=== PATIENT | male | born 1955 | race Caucasian/White ===

== ENCOUNTER 2023-05-04 05:17 | Observation (INO) ==
--- NOTE | 2023-03-22 11:47 | PAT Medication Instructions ---
Medication Instructions Date of Service March 22, 2023 Home Medications aspirin 81 mg tablet,delayed release 81 mg PO QAM coQ10 (ubiquinol) 200 mg capsule 200 mg PO QPM lisinopril 20 mg tablet 20 mg PO QPM metformin 500 mg tablet 500 mg PO BID metoprolol succinate 25 mg tablet,extended release 24 hr 25 mg PO QPM rosuvastatin 10 mg tablet 10 mg PO HS STOP taking 2 weeks before surgery (or as soon as possible if surgery is within 2 weeks) coQ10 (ubiquinol) 200 mg capsule 200 mg PO QPM DO NOT take the morning of surgery metformin 500 mg tablet 500 mg PO BID Take morning of surgery With a small sip of water, OTHERWISE NOTHING TO EAT OR DRINK AFTER MIDNIGHT: aspirin 81 mg tablet,delayed release 81 mg PO QAM (unless directed otherwise by surgeon) Take evening before surgery lisinopril 20 mg tablet 20 mg PO QPM metformin 500 mg tablet 500 mg PO BID metoprolol succinate 25 mg tablet,extended release 24 hr 25 mg PO QPM rosuvastatin 10 mg tablet 10 mg PO HS Other Notes If you have any questions please call us at [phone] or [phone] or [phone] or [phone]
--- NOTE | 2023-03-25 10:25 | Anesthesiology Consultation ---
Date of Service March 25, 2023 Assessment & Plan (1) Encounter for pre-operative examination: - Check BSG AM DOS - COVID screening: Per assessment on 03/25: No known COVID-19 positive contacts or current COVID-19 related symptoms. Travel screen negative. Patient vaccinated. At surgeon discretion if preop Covid testing being done. - Outpatient joint assessment: Pt currently scheduled for inpatient pathway. If surgeon requests review for outpatient joint pathway, patient is not recommended candidate (with current available information) for outpatient joint program from anesthesia standpoint. Chart Review Chart Review: Acceptable Risk for Surgery and Patient seen in Pre Admission Testing Teaching & Discussion Pre-Anesthesia Teaching/Discussion Notes: Instructed NPO after midnight before surgery,except medications with 15 cc of water. Medication instructions provided according to the PAT guidelines. History Surgery Operation Date: 05/04/23 10:05 Proposed Procedures p Left Total Knee Arthroplasty - Jet Shannon MD Height/Weight Height: 6 ft Weight: 145.5 kg Allergies Allergy/AdvReac Type Severity Reaction Status Date / Time nickel Allergy Mild "Turned Verified 03/25/23 16:01 finger green" from metal ring Medications Home Medications Medication Instructions Recorded Confirmed Last Taken aspirin 81 mg tablet,delayed 81 mg PO QAM 03/18/23 03/18/23 Unknown release coQ10 (ubiquinol) 200 mg capsule 200 mg PO QPM 03/18/23 03/18/23 Unknown lisinopril 20 mg tablet 20 mg PO QPM 03/18/23 03/18/23 Unknown metformin 500 mg tablet 500 mg PO BID 03/18/23 03/18/23 Unknown metoprolol succinate 25 mg 25 mg PO QPM 03/18/23 03/18/23 Unknown tablet,extended release 24 hr rosuvastatin 10 mg tablet 10 mg PO HS 03/18/23 03/18/23 Unknown Past Medical History Medical History Arthritis History of asthma Hyperlipidemia Hypertension Morbid obesity Prediabetes Taking metformin Exercise / Class Metabolic Activity II 4-5 Yardwork/Stairs/Walk up hill (one FS (no CP, no SOB)) Past Family History Family History Other No family history of adverse response to anesthesia Past Surgical History Surgical History History of facial surgery plastic surgeon repaired fx on left side of face (hit with a metal equipment) History of tonsillectomy and adenoidectomy Past Anesthesia History No Hx of Anesthesia Complications and No Family Hx of Anesthesia Complications History of PONV No Hx of PONV and No Hx of Motion Sickness Social History Smoking Status: Never smoker tobacco type: smokeless tobacco Do You Dip or Chew Tobacco: Yes (advised none DOS) Hx Alcohol Use: No Hx Substance Use: No substance use type: does not use Review of Systems Patient denies chest pain, shortness of breath, dyspnea on exertion, fever, chills, cough, wheezing, palpitations. Physical Exam Vital Signs VITALS BP 106/74 P 86 TEMP 98.5 SP02 97%RA RESP 16 PHYSICAL Full cervical extension range of motion. Full TMJ range of motion. TMD 3 finger breaths (difficult to palpate) Mallampati Score 3 Dentition: lower front missing, upper full denture Lungs: clear throughout to auscultation Cardiac: regular rate and rhythm, no murmurs noted Spine: normal Carotid arteries: negative bruit Extremities: no LE edema Thick neck Lab Results Anesthesia Preop Results Results Anesthesia Widget: WBC 8.94 K/ul (4.8-10.8) 03/25/23 Hgb 16.8 g/dl (14.0-18.0) 03/25/23 Hct 50.5 % (42.0-52.0) 03/25/23 Plt 193 K/uL (130-400) 03/25/23 Na 141 mmol/L (136-145) 03/25/23 K 4.8 mmol/L (3.5-5.1) 03/25/23 Cl 107 mmol/L (98-107) 03/25/23 CO2 27 mmol/L (21-32) 03/25/23 BUN 13 mg/dl (6-23) 03/25/23 Creat 1.06 mg/dl (0.6-1.4) 03/25/23 Glucose Level 102 mg/dl (70-99(Fasting)) H 03/25/23 PT 11.0 Seconds (9.0-12.0) 03/25/23 PTT 26.6 Seconds (21.0-31.0) 03/25/23 INR 1.0 (0.9-1.1) 03/25/23 HA1c 5.9 % (4.5-5.6) H 03/25/23 Urine Color Dark Yellow 03/25/23 Urine Appearance Cloudy (Clear) A 03/25/23 Urine pH 5.0 (4.5-7.5) 03/25/23 Urine Specific [place] 1.023 (1.000-1.030) 03/25/23 Urine Protein Trace (Negative) H 03/25/23 Urine Glucose (UA) 1+ (Negative) H 03/25/23 Urine Ketones Trace (Negative) H 03/25/23 Urine Blood Negative (Negative) 03/25/23 Urine Nitrite Positive (Negative) A 03/25/23 Urine Bilirubin Negative (Negative) 03/25/23 Urine Urobilinogen Negative (Negative) 03/25/23 Urine Leukocyte Esterase 2+ (Negative) H 03/25/23 Urine WBC (Auto) >30 /hpf (0-5) H 03/25/23 Urine RBC (Auto) 0-4 /hpf (0-4) 03/25/23 Urine Hyaline Casts (Auto) 1-5 /lpf (0-5) 03/25/23 Urine Epithelial Cells (Auto) 20-30 /lpf (0-5) H 03/25/23 Urine Bacteria (Auto) Negative (Negative) 03/25/23 Urine Yeast Not Reportable 03/25/23 Blood Type A Negative 03/25/23 Antibody Screen NEGATIVE 03/25/23 Testing Electrocardiogram Date: 03/25/23 Findings: + NSR @ (85) Chest X-Ray Date: 03/25/23 FINDINGS: No lines and tubes are seen. The cardiomediastinal silhouette is no rmal. The lungs are clear. No evidence of pleural effusion or pneumothorax. IMPRESSION: No acute chest disease. COVID-19 Risk Screen Screening Information COVID-19 Screen Date: 03/25/23 Exposure 21 Days Family/Household +COVID Last 21 Days: No Exposure 10 Days Any COVID Exposure Last 10 Days: No Symptoms Last 10 Days Experienced COVID Sx Last 10 Days: No + COVID 0-90 Days COVID + in Last 0-90 Days: No
--- NOTE | 2023-05-03 08:53 | History & Physical Report ---
Date of Service May 03, 2023 Assessment & Plan (1) Primary osteoarthritis of left knee: Plan: Treatment options discussed with patient. He has failed conservative measures and would like to proceed with surgery. Risks, benefits and alternatives to surgery including but not limited to infection, DVT, pain, stiffness, need for revision surgery, damage to blood vessels, damage to nerves, PE, , were discussed with the patient and they wish to proceed. Plan on left total knee arthroplasty scheduled for [facility] on 05/04/[address] Shannon. Plan on Xarelto 10mg daily post op for DVT prophylaxis. All questions answered. All questions answered. Patient will follow up posto p. History of Present Illness Chief Complaint: Left knee pain Primary Care Provider: Jacob Negron 67yo male with PMHx significant for HTN, prediabetes who presents with ongoing left knee pain. Pain interfering with his daily activity. He has failed conservative measures and would like to proceed with surgical intervention. Patient denies headaches, sweats, fevers, chills, double vision, blurred vision, cough, sore throat, dysphagia, chest pain, sob, wheezing, n/v/d/c, numbness, tingling, fatigue, urinary symptoms, mood disorders. ROS positive for left knee pain and stiffness. Allergies Allergy/AdvReac Type Severity Reaction Status Date / Time nickel Allergy Mild "Turned Verified 03/25/23 16:01 finger green" from metal ring Home Medications Medication Instructions Recorded Confirmed Type aspirin 81 mg tablet,delayed 81 mg PO QAM 03/18/23 03/18/23 History release coQ10 (ubiquinol) 200 mg capsule 200 mg PO QPM 03/18/23 03/18/23 History lisinopril 20 mg tablet 20 mg PO QPM 03/18/23 03/18/23 History metformin 500 mg tablet 500 mg PO BID 03/18/23 03/18/23 History metoprolol succinate 25 mg 25 mg PO QPM 03/18/23 03/18/23 History tablet,extended release 24 hr rosuvastatin 10 mg tablet 10 mg PO HS 03/18/23 03/18/23 History Past Med/Surg History Medical History Arthritis History of asthma Hyperlipidemia Hypertension Morbid obesity Prediabetes Taking metformin Surgical History History of facial surgery plastic surgeon repaired fx on left side of face (hit with a metal equipment) History of tonsillectomy and adenoidectomy Family History Other No family history of adverse response to anesthesia Social History Smoking Status: Never smoker Second Hand Exposure: Yes (as a child); Do You Dip or Chew Tobacco: Yes (advised none DOS); Hx Alcohol Use: No Hx Substance Use: No Preferred Language: Salvadorean Furnace Cooler Required: No Beliefs That Will Affect Care: None Current Living Situation: Spouse Feels Safe at Home: Yes Safety Concerns: Feels Safe At This Time Assistive Devices: Denture - Upper and Glasses Review of Systems All systems reviewed & are unremarkable except as noted in HPI & below Physical Exam Constitutional: well developed and well nourished; no acute distress Eyes: PERRL, conjunctivae normal, anicteric sclerae ENMT: external ear and nose normal, oropharynx normal Neck: trachea midline, no thyromegaly Respiratory: normal respiratory effort, lungs clear to auscultation Cardiovascular: RRR, no murmur, no edema Musculoskeletal: Left knee: ROM 25-95 degrees. Stable to valgus and varus stress test. He has a varus alignment. Tenderness medial joint line. Able to do SLR however with extensor lag. Skin: no rashes, warm and dry Neurologic: patellar DTR's 2+ bilat, sensation intact Psychiatric: A+Ox3, euthymic affect Results & Data Diagnostic Findings Bilateral knee x-rays demonstrate he has severe grade 4 osteoarthritis in the medial compartment of the left knee, moderately severe in the medial compartment of the right knee, with bone on bone on flexion views, with some bone loss and flattening of the left knee. Right knee he still has a few millimeters of joint space. He has patellofemoral osteoarthritis in both knees, with a centrally aligned patella. Left knee also has subchondral cystic changes, tricompartmental osteophytes, and a large loose body in the suprapatellar pouch. Four-view x-rays bilateral knees.
[2023-05-04] MEDS ORDERED: ROPIVACAINE 0.5% HCL/PF 150 MG, BUPIVACAINE 0.75% MPF 20 ML, EPINEPHrine 30MG/30ML (OR ... INSTIL SCH (06:00)
[2023-05-04] MEDS ORDERED: LR 15ML/HR IV SCH (06:00)
[2023-05-04] MEDS ORDERED: TRANEXAMIC ACID 1,000 MG **IV Intra-op IV SCH (06:00)
[2023-05-04] MEDS ORDERED: CeleBREX 200 MG CAP PO SCH (06:00)
[2023-05-04] MEDS ORDERED: TRANEXAMIC ACID 1,000 MG **IV Pre-op IV SCH (06:00)
[2023-05-04] MEDS ORDERED: FAMOTIDINE 20 MG TAB PO SCH (06:00)
[2023-05-04] MEDS ORDERED: ACETAMINOPHEN 500 MG TAB PO SCH (06:00)
[2023-05-04] MEDS ORDERED: GABAPENTIN 300 MG CAP PO SCH (06:00)
[2023-05-04] MEDS ORDERED: METOCLOPRAMIDE HCL 10 MG TABLET PO SCH (06:00)
[2023-05-04] MEDS ORDERED: ROPIVACAINE 0.5% 5 MG/ML 30 ML VIAL ONE (06:23)
[2023-05-04] MEDS ORDERED: MIDAZOLAM HCL 1 MG/ML 2ML VIAL ONE (06:51)
[2023-05-04] MEDS ORDERED: fentaNYL citrate PF 100 MCG/2 ML VIAL ONE (06:51)
[2023-05-04] MEDS ORDERED: HYDROmorphone INJ 1 MG/ML SYRINGE IV PRN (06:59)
[2023-05-04] MEDS ORDERED: ATROPINE SULFATE 0.1 MG/ML 10ML SYR IV PRN (06:59)
[2023-05-04] MEDS ORDERED: ONDANSETRON INJ 2 MG/ML 2 ML VIAL IV PRN ×2 (06:59→11:58)
[2023-05-04] MEDS ORDERED: ePHEDrine sulfate 50 MG/ML AMP IV PRN (06:59)
--- NOTE | 2023-05-04 07:09 | History & Physical Bridge Note ---
Date of Service May 04, 2023 History & Physical Bridge Note I have examined the patient, reviewed the History & Physical and in the interval since the performance of the History & Physical I have noted the following changes of clinical significance: no changes noted
[2023-05-04] MEDS ORDERED: ORTHO JOINT ANESTHETIC ONE (07:14)
[2023-05-04] MEDS ORDERED: PROPOFOL IV EMULSION 10 MG/ML 20 ML VIAL IV ONE ×4 (07:37→09:40)
[2023-05-04] MEDS ORDERED: ePHEDrine sulfate 50 MG/ML AMP ONE (07:46)
--- NOTE | 2023-05-04 09:55 | Operative Report ---
Post Operative Report Pre & Post Diagnosis Operation Date: 05/04/23 07:15 Pre-Op Diagnosis: Left Knee Osteoarthritis, obesity BMI 44.4, nickel allergy Post-Op Diagnosis: Left Knee Osteoarthritis, obesity BMI 44.4, nickel allergy I identified the patient and participated in the time-out.: Yes Procedure Operation Date: 05/04/23 07:15 Actual Procedures p Left Total Knee Arthroplasty(Left), superficial wound VAC- Jet Shannon MD Surgeon Jet Shannon MD Paper Tube Grader Sav AGUAYO Estimated Blood Loss 10 Findings Consistent with Post-Op Diagnosis Specimens Bone cuts Drains 2 Hemovac Anesthesia Type MAC Spinal Regional Complications none Disposition Disposition: Recovery Room Indications 67-year-old male with progressive osteoarthritis in his left knee failed conserv ative management. Patient has severe tricompartmental DJD end-stage osteoarthritis , flexion contracture ,varus knee. Description of Procedure The patient was taken to the operating room and anesthetized under spinal MAC regional block. Patient was placed supine on the the operating table. A pneumatic tourniquet was placed about the Left upper thigh. The knee exam demonstrated obese upper thigh moderate obesity the knee a flexion contracture of 30 degrees with flexion to 100 degrees no pseudolaxity in a very stiff knee. The involved leg was elevated exsanguinated with Esmarch bandage and the pneumatic tourniquet was raised to 350millimeters mercury. A longitudinal incision was made across the anterior knee. Skin flaps were elevated. An incision was made into the medial retinaculum and extended up into the mid third of the quadriceps tendon and extended down to the tibial tubercle. Intra- articular findings demonstrated tricompartmental osteoarthritis with Grade 4 medial compartment osteoarthritis some bone loss in the medial compartment. there were tricompartmental large osteophytes. There was a chronically torn medial meniscus partial tear of the ACL very large loose bodies posterior medial compartment. The knee was exposed by excising cruciate ligaments and menisci. All loose bodies were resected. The infrapatellar fat pad was resected. The fat pad over the anterior femur at the upper aspect of the articular surface was resected for placement of the component in that area. A subperiosteal peel lateral release was performed around the patella. The [employer]hew Hitchney 2.0 total knee arthroplasty system was utilized for the procedure. The drill hole was made and the intramedullary leanna was placed for the distal femoral cutting guide which was placed and additional 2+ cut was made due to the flexion contracture. The distal femoral cut was made. The sizing guide was placed and the femur sized for a size 8. Drill holes were placed in 3 degrees of external rotation to match epicondylar axis.The size 8, 5 in 1 cutting block was placed. The anterior posterior and chamfer cuts were made. The knee was extended and a free hand cut technique was performed to the patella. The patella with was measured and the width was reproduced using a 41 symmetrical patella component. 3 drill holes are made for the patella component pegs. The tibia was then subluxed. The external tibial cutting guide was adjusted for alignment and slope and was pinned in position and the proximal tibial cut was made with the oscillating saw. The size 7 tibial trial was externally rotated in line with the tibial tubercle and pinned in position. The punch for the stem was used. ligaments were balanced in extension and flexion requiring medial posterior medial release and some minor pie crusting of the MCL. The femoral trial was inserted and centered the notch cutting devices were used and the collet was placed. Tibial trials were used for the insert. The size 10 trial gave balanced ligaments through full range of motion. Patella tracking was assessed with range of motion. The patella tracked c entrally. The trials were removed. The Orthomix anesthetic cocktail was injected per protocol. The cut bone surfaces and soft tissue were copiously irrigated with pulsatile lavage saline solution. The final components were cemented with Refobacin cement. The final components were Olivo [employer] Nephew journey 2.0 size left posterior stabilized femoral component, size 7 tibia with a 10 mm insert and 41 symmetrical patella. After the cement cured, the Betadine soak was used for 3 minutes. The knee was then copiously irrigated with pulsatile lavage saline solution. 2 drains were brought out laterally connected to Hemovac. The quadriceps tendon and medial retinaculum were closed with interrupted [id number] #1 Vicryl sutures. The knee was taken through full range of motion and repair was secure. Knee range of motion was 0 through 130 degrees. the subcutaneous tissues were closed with 2-0 Vicryl sutures. The skin was closed with Strata fix and Prineo glue system. A Cally superficial wound VAC was applied. The tourniquet was let down and the patient had good capillary refill to the extremity. The patient tolerated the procedure well. My physician minister assistant Stuart AGUAYO participated as fitness assistant and was integral part in all aspects of the procedure including prepping, draping, leg positioning, soft tissue retraction, instrument management and assisted in the closure , application of the wound VAC and will participate in postoperative care the patient. was increased level difficulty due to the size the patient and obesity which added 25 minutes time of the case. I attest to the content of the Intraoperative Record and any orders documented therein. Any exceptions are noted below.
--- NOTE | 2023-05-04 11:27 | XRay Report ---
XR knee LT 1 or 2V routine CLINICAL HISTORY: Surgical Post Op TECHNIQUE: 2 views of the left knee were obtained. Comparison: None available at the time of this dictation. FINDINGS: Patient is status post total knee arthroplasty with expected postsurgical changes including soft tiss ue swelling and subcutaneous emphysema. No periarticular lucency or hardware fracture is seen. IMPRESSION: Expected postoperative appearance status post placement of total knee arthroplasty. ACT 112: Negative or not required by law. Electronically signed by: Gene Roman M.D. 05/04/2023 11:25 AM
[2023-05-04] MEDS ORDERED: MAGNESIUM HYDROXIDE SUSP 30 ML UDC PO PRN (11:58)
[2023-05-04] MEDS ORDERED: bisacodyL 10 MG SUPP PR PRN (11:58)
[2023-05-04] MEDS ORDERED: HYDROmorphone INJ 0.5 MG/0.5 ML SYR IV PRN (11:58)
[2023-05-04] MEDS ORDERED: NALOXONE HCL 0.4 MG/1 ML VIAL/CARP IV PRN (11:58)
[2023-05-04] MEDS ORDERED: oxyCODONE HCL IR 5 MG TAB (IMMEDIATE RELEASE) PO PRN (11:58)
[2023-05-04] MEDS ORDERED: METOCLOPRAMIDE HCL INJ 5 MG/ML 2 ML VIAL IV PRN (11:58)
[2023-05-04] MEDS: SODIUM CHLORIDE 0.9% 1000ML 1,000 ML IV SCH ×2 (12:08→21:27)
--- NOTE | 2023-05-04 12:51 | Anesthesiology Progress Note ---
Date of Service May 04, 2023 Anesthesia Post Procedure Vital Signs Vital Signs: Temp Pulse Pulse Resp BP Pulse Ox O2 Del Method 05/04/23 12:43 36.5 C 71 20 136/80 99 Room Air 05/04/23 12:20 36.4 C L 70 18 136/75 95 Room Air 05/04/23 11:45 36.5 C 65 16 122/76 99 Room Air 05/04/23 11:25 74 12 129/68 95 Room Air 05/04/23 11:10 78 12 130/63 99 Room Air 05/04/23 11:00 36.6 C 76 12 131/70 98 Nasal Cannula 05/04/23 10:50 78 12 127/73 97 Nasal Cannula 05/04/23 10:40 84 15 129/74 97 Nasal Cannula 05/04/23 10:32 36.5 C 86 17 126/65 96 Nasal Cannula 05/04/23 05:46 36.7 C 95 H 20 180/88 H 96 Room Air O2 Flow Rate 05/04/23 12:43 05/04/23 12:20 05/04/23 11:45 05/04/23 11:25 05/04/23 11:10 05/04/23 11:00 2 05/04/23 10:50 2 05/04/23 10:40 2 05/04/23 10:32 2 05/04/23 05:46 Pain Intensity Left Knee: Pain Intensity: 5 Transfer of Care Handoff Completed per policy Notes Mental Status: alert / awake / arousable Patient Amnestic to Procedure: Yes Nausea / Vomiting: adequately controlled Pain: adequately controlled Airway Patency, RR, SpO2: stable & adequate BP & HR: stable & adequate Hydration State: stable & adequate Anesthetic Complications: no major complications apparent
[2023-05-04] MEDS: ACETAMINOPHEN 500 MG TAB PO SCH ×2 (13:51→21:23)
[2023-05-04] MEDS: ceFAZolin 2000MG 2,000 MG/15 ML SYR IV SCH ×2 (16:59→23:51)
[2023-05-04] MEDS ORDERED: hydrALAZINE HCL 20 MG/ML VIAL IV PRN (17:03)
--- NOTE | 2023-05-04 17:05 | Hospitalist Consultation ---
Date of Consultation May 04, 2023 Assessment & Plan (1) Primary osteoarthritis of left knee: patient underwent left total knee arthroplasty on 05/04/[address] Sebastian (2) Hypertension: typically takes lisinopril and metoprolol we will continue to hold lisinopril in the postoperative state of a orthopedic replacement at this time to avoid orthostatic hypotension (3) Diabetes: patient is metformin is on hold we will have BSG's and loose sliding scale Plan Rivaroxaban for DVT prevention History of Present Illness Attending Physician: Jet Shannon MD History of Present Illness 59-year-old male who suffers from diabetes controlled metformin hypertension underwent a right total knee arthroplasty today 05/04/2023 per discussion med reconciliation reviewed the patient states he did he was instructed not to stop his aspirin therapy preoperatively but he did hold his metformin per orthopedic results patient will likely be on Xarelto post procedure for DVT prevention Allergies Allergy/AdvReac Type Severity Reaction Status Date / Time nickel Allergy Mild "Turned Verified 05/04/23 05:43 finger green" from metal ring Home Medications Medication Instructions Recorded Confirmed Type aspirin 81 mg tablet,delayed 81 mg PO QAM 03/18/23 05/04/23 History release coQ10 (ubiquinol) 200 mg capsule 200 mg PO QPM 03/18/23 05/04/23 History lisinopril 20 mg tablet 20 mg PO QPM 03/18/23 05/04/23 History metformin 500 mg tablet 500 mg PO BID 03/18/23 05/04/23 History metoprolol succinate 25 mg 25 mg PO QPM 03/18/23 05/04/23 History tablet,extended release 24 hr rosuvastatin 10 mg tablet 10 mg PO HS 03/18/23 05/04/23 History Patient History Medical History (Updated 05/04/23 @ 17:02 by Virgilio Wray MD) Arthritis History of asthma Hyperlipidemia Hypertension Morbid obesity Prediabetes Taking metformin Surgical History History of facial surgery plastic surgeon repaired fx on left side of face (hit with a metal equipment) History of tonsillectomy and adenoidectomy Family History Other No family history of adverse response to anesthesia Social History Smoking Status: Never smoker Second Hand Exposure: Yes (as a child); Do You Dip or Chew Tobacco: Yes (advised none DOS); Hx Alcohol Use: No Hx Substance Use: No Preferred Language: Indonesian Communication Ability: Effective [employer] Consultant Required: No Beliefs That Will Affect Care: None Current Living Situation: Spouse Feels Safe at Home: Yes Safety Concerns: Feels Safe At This Time Assistive Devices: Walker Review of Systems Review of Systems: Physical Exam Physical Exam: patient feels well still has nerve block in place for lower extremity numbness but can wiggle his toes and has some sensation back. Card exam is regular lungs are clear abdomen NABS soft and nontender Results & Data Results & Data Vital Signs (Past 12 Hours) Vital Signs Temp Pulse Pulse Resp BP Pulse Ox O2 Del Method 05/04/23 15:14 98.2 F 78 18 147/89 H 98 Room Air 05/04/23 13:52 73 16 137/81 99 Room Air 05/04/23 12:43 97.7 F 71 20 136/80 99 Room Air 05/04/23 12:20 97.5 F L 70 18 136/75 95 Room Air 05/04/23 11:45 97.7 F 65 16 122/76 99 Room Air 05/04/23 11:25 74 12 129/68 95 Room Air 05/04/23 11:10 78 12 130/63 99 Room Air 05/04/23 11:00 97.9 F 76 12 131/70 98 Nasal Cannula 05/04/23 10:50 78 12 127/73 97 Nasal Cannula 05/04/23 10:40 84 15 129/74 97 Nasal Cannula 05/04/23 10:32 97.7 F 86 17 126/65 96 Nasal Cannula 05/04/23 05:46 98.1 F 95 H 20 180/88 H 96 Room Air O2 Flow Rate 05/04/23 15:14 05/04/23 13:52 05/04/23 12:43 05/04/23 12:20 05/04/23 11:45 05/04/23 11:25 05/04/23 11:10 05/04/23 11:00 2 05/04/23 10:50 2 05/04/23 10:40 2 05/04/23 10:32 2 05/04/23 05:46 PG Care Time/CCT Total # of Minutes Spent Total Time Spent with Patient: Total time spent is greater than 50% in coordination of care (as documented) at patient's floor/unit and/or counseling patient: Coding Level of Care Code 20375 IN/OBS CONSULT LVL 3,45M Diagnoses Primary osteoarthritis of left knee M17.12 Hypertension I10 Diabetes E11.9
[2023-05-04] MEDS: SENNA 8.6 MG TAB PO SCH (21:24)
[2023-05-04] MEDS: METOPROLOL SUCC 25MG EXT REL TAB PO SCH (21:24)
[2023-05-04] MEDS: DOCUSATE SODIUM 100 MG CAP PO SCH (21:24)
[2023-05-04] MEDS: ROSUVASTATIN CALCIUM 10 MG TAB PO SCH (21:24)
[2023-05-05] MEDS: ACETAMINOPHEN 500 MG TAB PO SCH ×3 (05:17→21:21)
[2023-05-05 06:44] LABS: Hematocrit (blood only) 42.7 % (42.0-52.0); Hemoglobin 14.2 g/dl (14.0-18.0); Mean Corpuscular Hemoglobin 29.8 pg (25.0-34.0); Mean Corpuscular Hgb Conc 33.3 g/dL (32.0-36.0); Mean Corpuscular Volume 89.7 fL (80.0-100.0); Mean Platelet Volume 12.1 fL (9.4-12.4); Platelet Count 144 K/uL (130-400); RDW Coefficient of Variation 13.1 % (11.5-14.5); RDW Standard Deviation 43.1 fL (36.4-46.3); Red Blood Count 4.76 M/uL (4.70-6.10); White Blood Count 9.81 K/ul (4.8-10.8)
[2023-05-05 06:57] LABS: Anion Gap 6 (3-11); BUN Creatinine Ratio 20.4 (10-20); Blood Urea Nitrogen 21 mg/dl (6-23); Calcium 8.1 mg/dl (8.6-10.3); Carbon Dioxide 23 mmol/L (21-32); Chloride 108 mmol/L (98-107); Creatinine Clr Calc Pharmacy 99.9 ml/min; Est GFR (African American) 86.1 ml/min; Est GFR (Non-African American) 74.3 ml/min; Glucose 154 mg/dl (70-99(Fasting)); Sodium 137 mmol/L (136-145)
--- NOTE | 2023-05-05 07:09 | Orthopedic Progress Note ---
Date of Service May 05, 2023 Assessment & Plan (1) Primary osteoarthritis of left knee: Plan: Postop day 1 status post left total knee arthroplasty. PT/OT protocols. Weightbearing as tolerated. DVT prophylaxis-Xarelto daily, SCDs, SUKHJINDER hernández. Pain management as written DC planning-patient is planning for outpatient PT upon discharge. Admission and Anticipated Discharge Date Admission Date: May 04, 2023 Subjective Postop day 1 Patient sitting in his chair at the bedside. No complaints this morning. Pain is controlled. Denies shortness of breath, chest pain, lightheadedness. Physical Exam Physical Exam: Dressings are clean, dry, and intact. Calves are soft and nontender. Neurovascular is intact. Toes are mobile. Hemovac drainage was 400 cc from the previous shift. Results & Data Vital Signs (Past 12 Hours) Vital Signs Temp Pulse Resp BP Pulse Ox O2 Del Method 05/05/23 06:20 36.7 C 80 18 127/83 94 Room Air 05/05/23 03:20 36.7 C 78 16 135/83 96 Room Air 05/04/23 23:28 36.7 C 82 16 123/76 95 Room Air 05/04/23 19:44 36.8 C 83 16 114/79 95 Room Air Laboratory Results Laboratory Results WBC 9.81 K/ul (4.8-10.8) 05/05/23 06:03 RBC 4.76 M/uL (4.70-6.10) 05/05/23 06:03 Hgb 14.2 g/dl (14.0-18.0) 05/05/23 06:03 Hct 42.7 % (42.0-52.0) 05/05/23 06:03 MCV 89.7 fL (80.0-100.0) 05/05/23 06:03 MCH 29.8 pg (25.0-34.0) 05/05/23 06:03 MCHC 33.3 g/dL (32.0-36.0) 05/05/23 06:03 RDW Std Deviation 43.1 fL (36.4-46.3) 05/05/23 06:03 RDW Coeff of Ledy 13.1 % (11.5-14.5) 05/05/23 06:03 Plt Count 144 K/uL (130-400) 05/05/23 06:03 MPV 12.1 fL (9.4-12.4) 05/05/23 06:03 Sodium 137 mmol/L (136-145) 05/05/23 06:03 Potassium TNP 05/05/23 06:03 Chloride 108 mmol/L (98-107) H 05/05/23 06:03 Carbon Dioxide 23 mmol/L (21-32) 05/05/23 06:03 Anion Gap 6 (3-11) 05/05/23 06:03 BUN 21 mg/dl (6-23) 05/05/23 06:03 Creatinine 1.03 mg/dl (0.6-1.4) 05/05/23 06:03 Est Cr Clr Drug Dosing 99.9 ml/min 05/05/23 06:03 Est GFR ( Amer) 86.1 ml/min 05/05/23 06:03 Est GFR (Non-Af Amer) 74.3 ml/min 05/05/23 06:03 BUN/Creatinine Ratio 20.4 (10-20) H 05/05/23 06:03 Glucose 154 mg/dl (70-99(Fasting)) H 05/05/23 06:03 POC Glucose 168 mg/dl (70-99) H 05/05/23 06:57 Calcium 8.1 mg/dl (8.6-10.3) L 05/05/23 06:03 SARS-CoV-2, RNA, NAAT NEGATIVE (NEGATIVE) 05/04/23 05:25 Impressions Knee X-Ray 05/04/23 10:38 XR knee LT 1 or 2V routine CLINICAL HISTORY: Surgical Post Op TECHNIQUE: 2 views of the left knee were obtained. Comparison: None available at the time of this dictation. FINDINGS: Patient is status post total knee arthroplasty with expected postsurgical changes including soft tissue swelling and subcutaneous emphysema. No periarticular lucency or hardware fracture is seen. IMPRESSION: Expected postoperative appearance status post placement of total knee art hroplasty. ACT 112: Negative or not required by law. Electronically signed by: Gene Roman M.D. 05/04/2023 11:25 AM
[2023-05-05] MEDS: CeleBREX 200 MG CAP PO SCH (08:56)
[2023-05-05] MEDS: DOCUSATE SODIUM 100 MG CAP PO SCH ×2 (08:56→21:22)
[2023-05-05] MEDS: MULTIVITAMIN TAB PO SCH (08:56)
[2023-05-05] MEDS ORDERED: RIVAROXABAN 10 MG TABLET PO SCH (16:30)
[2023-05-05] MEDS ORDERED: lisinopril 20 MG TAB PO SCH (21:00)
[2023-05-05] MEDS: ROSUVASTATIN CALCIUM 10 MG TAB PO SCH (21:22)
[2023-05-05] MEDS: METOPROLOL SUCC 25MG EXT REL TAB PO SCH (21:22)
[2023-05-05] MEDS: SENNA 8.6 MG TAB PO SCH (21:23)
[2023-05-06] MEDS: ACETAMINOPHEN 500 MG TAB PO SCH (05:51)
--- NOTE | 2023-05-06 07:07 | Orthopedic Progress Note ---
Date of Service May 06, 2023 Assessment & Plan (1) Primary osteoarthritis of left knee: Plan: Postop day 2 status post left total knee arthroplasty. PT/OT protocols. Weightbearing as tolerated. DVT prophylaxis-Xarelto daily, SCDs, SUKHJINDER hernández. Pain management as written Plan for dressing change and Hemovac removal today DC planning-patient is planning for outpatient PT upon discharge. Admission and Anticipated Discharge Date Admission Date: May 04, 2023 Subjective Postop day 2 patient sitting up in bed awake and alert. No complaints this morning. Pain is controlled. He is hoping to go home today. Physical Exam Physical Exam: Dressings are clean, dry, and intact. Calves are soft nontender. Neurovascular intact. Toes are mobile. He continues to have some slight drainage from his Hemovac but the drainage itself appears to be changing into a serous type drainage rather than bloody. Results & Data Vital Signs (Past 12 Hours) Vital Signs Temp Pulse Resp BP Pulse Ox O2 Del Method 05/05/23 20:35 36.9 C 89 18 122/81 96 Room Air
[2023-05-06 07:29] LABS: Hematocrit (blood only) 38.6 % (42.0-52.0); Hemoglobin 13.1 g/dl (14.0-18.0); Mean Corpuscular Hemoglobin 29.4 pg (25.0-34.0); Mean Corpuscular Hgb Conc 33.9 g/dL (32.0-36.0); Mean Corpuscular Volume 86.7 fL (80.0-100.0); Mean Platelet Volume 11.9 fL (9.4-12.4); Platelet Count 142 K/uL (130-400); RDW Coefficient of Variation 12.9 % (11.5-14.5); RDW Standard Deviation 40.9 fL (36.4-46.3); Red Blood Count 4.45 M/uL (4.70-6.10); White Blood Count 10.53 K/ul (4.8-10.8)
[2023-05-06] MEDS: CeleBREX 200 MG CAP PO SCH (08:22)
[2023-05-06] MEDS: DOCUSATE SODIUM 100 MG CAP PO SCH (08:22)
[2023-05-06] MEDS: MULTIVITAMIN TAB PO SCH (08:22)
--- NOTE | 2023-05-06 11:52 | Discharge Summary ---
Date of Service May 06, 2023 Admission HPI Per Admitting Provider 67yo male with PMHx significant for HTN, prediabetes who presents with ongoing left knee pain. Pain interfering with his daily activity. He has failed conservative measures and would like to proceed with surgical intervention. Patient denies headaches, sweats, fevers, chills, double vision, blurred vision, cough, sore throat, dysphagia, chest pain, sob, wheezing, n/v/d/c, numbness, tingling, fatigue, urinary symptoms, mood disorders. ROS positive for left knee pain and stiffness. Admission Exam Per Admitting Provider Physical Exam Constitutional: well developed and well nourished; no acute distress Eyes: PERRL, conjunctivae normal, anicteric sclerae ENMT: external ear and nose normal, oropharynx normal Neck: trachea midline, no thyromegaly Respiratory: normal respiratory effort, lungs clear to auscultation Cardiovascular: RRR, no murmur, no edema Musculoskeletal: Left knee: ROM 25-95 degrees. Stable to valgus and varus stress test. He has a varus alignment. Tenderness medial joint line. Able to do SLR however with extensor lag. Skin: no rashes, warm and dry Neurologic: patellar DTR's 2+ bilat, sensation intact Psychiatric: A+Ox3, euthymic affect Principal Diagnosis left knee osteoarthritis Discharge Data Allergies Allergy/AdvReac Type Severity Reaction Status Date / Time nickel Allergy Mild "Turned Verified 05/04/23 05:43 finger green" from metal ring Consultations 05/02/23 11:31 Consult Hospitalist Routine Procedures Performed Operation Date: 05/04/23 07:15 Actual Procedures p Left Total Knee Arthroplasty(Left) - Jet Shannon MD Ordered Studies 05/04/23 05:00 US - OR guided needle placemen Routine Hospital Course (1) Primary osteoarthritis of left knee: Patient was admitted on the above-noted date and had the above-noted surgery performed which he tolerated well. on his first postoperative day, patient was sitting in his chair at the bedside. He had no complaints. Pain was controlled. Dressings were clean and intact. Hemovac drainage was over 400 cc. He was started on PT and OT protocols and continued on DVT prophylaxis and pain management. He continued to have increased drainage from his Hemovac drain and Dr. Shannon felt patient should continue to remain overnight to monitor. Hemoglobin was 14.2. By his second postoperative day, the patient continued remained stable. Hemovac drainage was slowing down. Dressings remained intact and dry. Calves are soft nontender. Neurovascular intact. Toes mobile. He would continue to progress with his physical therapy and remain stable. It was felt that he was stable for discharge. Dressing change and Hemovac removal was ordered prior to dc and the patient was thusly discharged to home Total Time Total Time Spent Total Time Spent (In Minutes): 5 Discharge Plan Discharge Items Patient Disposition: Home - Self-Care Reason For Visit: Left Knee Osteoarthritis Discharge Diagnosis: Left knee osteoarthritis Activity: Per Instructions section Weightbearing: Left weightbearing Weightbearing Comment: as tolerated with walker Non-emergency contact: Surgeon Call non-emergency contact if: you have any medication questions, your pain is not controlled, your pain is concerning for you, you have a fever, your temperature is above 101, your wound has increased redness and your wound has increased drainage Follow-up/Referrals: Jacob Negron [Primary Care Provider] - Jet Shannon MD [Surgeon] - (Follow up with Dr. Shannon or his PA in 2 weeks from the day of surgery for your first post operative visit. ) Diet: Regular Addtl Attending Provider Instructions: ACTIVITY RECOMMENDATIONS: SELF CARE INSTRUCTIONS AFTER TOTAL KNEE REPLACEMENT A. You may need to continue a physical therapy program after discharge from the hospital. There are several options available to you. Your doctor will assist you in selecting the best one for you. 1. An out-patient facility 2 to 3 times a week for therapy or home therapy. 2. Continue working on all exercises taught to you in the hospital. Your goals should be to increase bending of your knee to 90 degrees and beyond and to fully straighten your knee. B. You may progress at your own pace from walking with a walker or crutches to a cane; then to no assistive devices. C. Make walking a part of your daily routine. Be up as much as comfortable with rest periods throughout the day. Rest with leg elevation is very important. Use the ice wrap frequently for the first 3-4 weeks. D. There are no restrictions on activities. You may ride in a car, shop, participate in airplane pilot and all social activities. E. Wear the long elastic stockings (SUKHJINDER hose) 20 hours a day for 2 weeks after surgery. They can be removed several times a day for laundering and for a bath. F. You may shower, no tub baths until cleared by your doctor. SPECIAL CARE INSTRUCTIONS: VERY IMPORTANT TO READ AND REVIEW A. There are a few signs you need to watch for after you are home. Call [facility] if you notice any of the followin. Increased severe knee pain. Some pain is expected especially when you exercise. 2. Increased swelling in your leg or knee; pain or swelling of the calf muscle in either lower leg. 3. Any fluid drainage from the incision. 4. Shortness of breath or chest pain. B. Please call [facility] at if you have any concerns or questions about your operation or recovery. The doctor or his nurse will return your call promptly. C. You must take antibiotics before dental work, bladder, bowel or other surgery. Your doctor will provide you with a permanent care to carry describing this precaution. IMPORTANT: * REMEMBER TO TAKE XARELTO 10MG DAILY FOR 4 WEEKS UNLESS OTHERWISE DIRECTED. THIS IS YOUR BLOOD THINNER. * CALL IF INCREASED PAIN, REDNESS, DRAINAGE OR FEVER GREATER THAT 101. * WEAR SUKHJINDER HOSE 20 HOURS PER DAY FOR 2 WEEKS. There is a large suction dressing covering your incision. This will help pull any excess drainage from the wound and allow your incision to heal properly. You may shower with this if you can keep the unit outside of the shower. If any bleeding or leakage is noted please call your doctor's office. This will remain on your incision for 7 days and then should be removed. This can be done yourself or by the home nursing staff if applicable. The entire unit is disposable once removed. Once removed, keep incision clean and dry. If redness or drainage is noted, please call your surgeon. Once this is removed please follow below instructions: There is a mesh tape dressing that is covered with glue. It should remain in place until the incision is properly healed, usually 10-14 days. This dressing is designed to naturally slough off. You may trim the excess mesh tape as it peels off. Incision may be briefly wet in a shower. Dry immediately by blotting with a clean, dry towel. Do not bath or swim until instructed by your doctor. Do not scratch, rub, or pick at the dressing. Do not apply any topical ointments or lotions until dressing is completely removed and/or instructed by your doctor. There may be a small piece of suture material at one end of your incision. Do not pull or trim this. If it is bothersome or catching on clothing, you may cover it with a band-aid. . IF INCISION IS LEAKING THROUGH DRESSING, CALL THE OFFICE . FOLLOW UP VISIT: If appointment is not already scheduled: Please call [facility] [place] to make a follow-up appointment for 2 weeks after your surgery at . Stand-Alone Forms: My [facility], Pain - Opioid Pain Management, Smoking Cessation Medications and DC Order Prescriptions: New acetaminophen [Tylenol Extra Strength] 500 mg Tablet 1,000 mg PO Q8 14 Days Qty: 84 0RF Xarelto 10 mg Tablet 10 mg PO QDD 30 Days Qty: 30 0RF cefadroxil 500 mg capsule 500 mg PO BID Qty: 14 0RF polyethylene glycol 3350 [Miralax] 17 gram powder in packet 17 g PO DAILY PRN (Reason: constipation) Qty: 5 0RF oxycodone 5 mg tablet 5 mg PO Q4H MDD 6 PRN (Reason: pain) Qty: 30 0RF Continued metformin 500 mg Tablet 500 mg PO BID lisinopril 20 mg Tablet 20 mg PO QPM metoprolol succinate 25 mg Tablet Extended Release 24 Hr 25 mg PO QPM rosuvastatin 10 mg Tablet 10 mg PO HS coQ10 (ubiquinol) 200 mg Capsule 200 mg PO QPM Held aspirin 81 mg Tablet,Delayed Release (Dr/Ec) 81 mg PO QAM Hold Instructions: Hold your aspirin until you stop taking your Xarelto (blood thinner) Discharge Orders: Discharge Order (Routine); Ordered 05/06/23 Ordered By: Pedro Pearce/Other Patient Handouts: Knee Replacement Total Dc Admission Data Admit Date/Time: 05/04/23 10:38 Attending Provider: Jet Shannon Admit Provider: Jet Shannon Primary Care Provider: Jacob Negron Other Providers: Giacomo Cuellar Other Interventions: Discharge Summary Assessment (RN) Last Done: 05/06/23 09:10
== END 2023-05-06 11:53 | disposition home or self-care (01) ==
LOC: 3E 05:17 → ASU 05:17